=== PATIENT | female | born 1945 | race Caucasian/White ===

== ENCOUNTER → 2017-10-08 | Day surgery (SDC) | payer MEDICARE ==
[~2017-10-08] VITALS: Ht 154.9 cm; Wt 80.9 kg
[~2017-10-08] MED LIST: ASPI1TAB57 PO; ASPI81TA21 PO; CHLORHEXIDINE GLUCONATE 2 % 1 PACK (2 CLOTHS) TOPICAL PRN; CIPR500T4 PO; COZA100T PO; CYTO200T PO; DICY1TAB26 PO; FAMOTIDINE 20 MG/2 ML VIAL ONE; GLUC1000 PO; LACTATED RINGER'S 1000 ML IV PRN; LOSA100T2 PO; LOSA25TA31 PO; METOCLOPRAMIDE HCL 10 MG/2 ML VIAL ONE; METOPROLOL TARTRATE 25 MG TAB PO PRN; MIDAZOLAM HCL 2 MG/2 ML VIAL ONE; OMEP40CA2 PO; POVIDONE IODINE 5% (ANTISEPSIS KIT) 4 APPLICATIONS EACH NARE PRN; SIMV40 PO; SIMV40TA PO; SODIUM CHLORID 0.9% 500 ML IV PRN; TRAM50TA PO; VASOPRESSIN 20 UNITS/ML VIAL ONE; ZEGE20CA PO; ZOCO40TA PO
--- NOTE | 2017-10-08 10:53 | RADRPT ---
EXAM DATE/TIME: 10/08/2017 10:38 [place] COMPARISON: No previous studies available for comparison. INDICATIONS : Evaluate for pneumonia, pneumothorax or communicable disease. Pre op polypectomy. MEDICAL HISTORY : Hypertension. Diabetes mellitus type II. SURGICAL HISTORY : None. ENCOUNTER: Initial ACUITY: 1 day PAIN SCORE: 0/10 LOCATION: Bilateral chest FINDINGS: A single view of the chest demonstrates the lungs to be symmetrically aerated without evidence of mas s, infiltrate or effusion. The cardiomediastinal contours are unremarkable. Osseous structures are intact. CONCLUSION: No acute intrathoracic disease. Ashu Rivas MD on October 08, 2017 at 10:50 Board Certified Radiologist. This report was verified electronically.
[2017-10-08 11:09] LABS: HEMATOCRIT 38.9 % (35.0-46.0); HEMOGLOBIN 12.9 GM/DL (11.6-15.3); MEAN CELL VOLUME 86.1 FL (80.0-100.0); MEAN CORPUSCULAR HEMOGLOBIN 28.7 PG (27.0-34.0); MEAN CORPUSCULAR HGB CONC 33.3 % (32.0-36.0); MEAN PLATELET VOLUME 7.4 FL (7.0-11.0); PLATELET COUNT 472 TH/MM3 (150-450); RED BLOOD COUNT 4.52 MIL/MM3 (4.00-5.30); RED CELL DISTRIBUTION WIDTH 13.3 % (11.6-17.2); WHITE BLOOD COUNT 9.3 TH/MM3 (4.0-11.0)
[2017-10-08 13:05] VITALS: PULSE 100
--- NOTE | 2017-10-08 13:21 | PD.OP ---
Operative Report Date of Surgery: Oct 08, 2017 Preoperative Diagnosis: (1) Endometrial polyp (2) PMB (postmenopausal bleeding) Postoperative Diagnosis: (1) Endometrial polyp (2) PMB (postmenopausal bleeding) Procedure: Hysteroscopy with polypectomy Anesthesia: Ron FRANCO Surgeon: Beckie Espinosa Cras(s): Bebo Spears Resident Surgeon: n/a Operation and Findings: Indications: [Patient has had repeated bouts of postmenopausal bleeding. Transvaginal ultrasound shows a 1 cm lesion in the uterine fundus and thin endometrium-] Findings: Patient was found on hysteroscopic view to have [a very small polyp near the left tubal ostia.-Uterus sounds to 6 cm.] Fluid deficit under 300 cc. Procedure: Patient was brought to the OR and laid supine on the table. After inducing general anesthesia she was positioned in low stirrups in dorso- lithotomy position. An open-sided speculum was placed in the vagina after Betadine prep and time out. The anterior lip of the cervix was grasped with a single tooth tenaculum, and the cervix was dilated to accept a standard rigid hysteroscope. After viewing and taking pictures, the polyp was extracted with a MyoSureLite device. The endometrium was the thoroughly sampled and included in the specimen. Small amount of tissue returned. The procedure being complete, the instruments were removed, the patient was replaced supine and she was awakened. She was transferred to the PACU breathing on her own in stable condition. Sponge, needle, and instrument counts were correct. Beckie Espinosa MD Oct 08, 2017 13:21
[2017-10-08 13:45] VITALS: PULSE 78; TEMP 97.8
[2017-10-08 14:35] VITALS: BP 109/71; PULSE 88; RESP 14; O2SAT 97
--- NOTE | 2017-10-08 16:35 | EKG ---
Date Performed: 10/08/2017 Time Performed: 11:23:34 PTAGE: 72 years EKG: Sinus rhythm NORMAL ECG NO PREVIOUS TRACING DOCTOR: Vic Miguel Interpretating Date/Time 10/08/2017 16:33:05
== END | disposition home or self-care (01) ==
LOC: PHSDC 09:49
PROVIDERS: ATTEND Obstetrics & Gynecology
DX: N84.0 Polyp of corpus uteri (principal); N95.0 Postmenopausal bleeding; E11.9 Type 2 diabetes mellitus without complications; Z79.84 Long term (current) use of oral hypoglycemic drugs
CPT/HCPCS: 00952; 58558; 71045; 82948; 85027; 88305; 93005; J2250; J2765; J3010; J7120

== ENCOUNTER 2018-05-13 10:25 | Inpatient (IN) ==
[2018-05-13] MEDS ORDERED: Sod Chloride 0.9% Inj 1,000 ML IV.SIG ONE (11:34)
[2018-05-13 11:50] LABS: Baso # (Auto) 0.1 th/mm3 (0.0-0.2); Baso % (Auto) 0.8 % (0.0-2.0); Eos % (Auto) 0.4 % (0.0-4.0); Hematocrit 39.4 % (35.0-46.0); Hemoglobin 13.4 gm/dL (11.6-15.3); Lymph # (Auto) 1.7 th/mm3 (1.0-4.8); Lymph % (Auto) 18.3 % (9.0-44.0); Mean Corpuscular Volume 85.4 fL (80.0-100.0); Mono # (Auto) 0.7 th/mm3 (0.0-0.9); Mono % (Auto) 8.2 % (0.0-8.0); Neut # (Auto) 6.6 th/mm3 (1.8-7.7); Neut % (Auto) 72.3 % (16.0-70.0); Platelet Count 596 th/mm3 (150-450); Red Blood Count 4.61 mil/mm3 (4.00-5.30); Red Cell Distribution Width 12.8 % (11.6-17.2); White Blood Count 9.1 th/mm3 (4.0-11.0)
--- NOTE | 2018-05-13 12:24 | ED ---
HPI General Chief Complaint: Dizziness Stated Complaint: Dizzy/nausea/lost of balance x last night Time Seen by Provider: 05/13/18 11:05 History of Present Illness HPI Narrative: This is a 73-year-old female with history of chronic back pain, diabetes mellitus, hypertension, previous vertigo several years ago, presents today with complaints of dizziness last night. Patient states she got up to use the bathroom at roughly 3 PM. She states that she became extremely dizzy. She does report that she was just recently started on a new medication called tramadol. She states that she had taken a tramadol at 9 AM and the symptoms were present at 3 PM yesterday. She does report that she had associated nausea and vomiting with the dizziness episode. She denies any dizziness with out changing positions. She denies any symptoms at the time of my examination. She has she remarks that her back pain is much more improved. There is no dysuria, urgency, frequency there are no other complaints. Related Data Home Medications Medication Instructions Recorded Confirmed Bifidobacterium infantis [Align] 4 mg PO DAILY 05/13/18 05/13/18 ascorbic acid (vitamin C) [Vitamin 500 mg PO DAILY 05/13/18 05/13/18 C] cranberry [id number] coag 1 tab PO DAILY 05/13/18 05/13/18 cyanocobalamin (vitamin B-12) 1,000 mcg PO DAILY 05/13/18 05/13/18 [Vitamin B-12] ergocalciferol (vitamin D2) 50,000 unit PO QWEEK 05/13/18 05/13/18 [Vitamin D2] losartan-hydrochlorothiazide 1 tab PO DAILY 05/13/18 05/13/18 metformin 1,000 mg PO BID 05/13/18 05/13/18 omeprazole 40 mg PO DAILY 05/13/18 05/13/18 simvastatin 40 mg PO QPM 05/13/18 05/13/18 vit B6-mag cit,oxid-potass cit 1 tab PO BID 05/13/18 05/13/18 [Theralith XR] Allergies Allergy/AdvReac Type Severity Reaction Status Date / Time cephalexin Allergy Unknown Skin Verified 05/13/18 10:55 Discoloration Review of Systems ROS: all other systems reviewed are negative Constitutional Denies chills and Denies fever(s) Eyes Denies blurry vision, Denies diplopia and Denies photophobia ENT Reports vertigo, Reports nasal congestion, Reports post nasal drip, Denies sinus pressure and Denies sore throat Cardiovascular Denies chest pain and Denies diaphoresis Respiratory Denies chest congestion, Denies cough and Denies dyspnea Gastrointestinal Denies abdominal pain, Denies diarrhea, Reports nausea and Reports vomiting Genitourinary Denies urinary frequency and Denies dysuria Musculoskeletal Reports back pain (Chronic, not new) and Reports neck pain (Chronic, not new) Neurologic Reports vertigo, Reports dizziness (Orthostatic), Denies headache(s), Denies focal weakness and Denies paresthesias [facility] Medical History Medical History Diabetes (Acute) History of hysterectomy (Acute) Hypertension (Acute) Surgical History Surgical History History of cystoscopy (Acute) Social History Social History Substance History: No History of Abuse Smoking Status: Former smoker How Often Do You Have a Drink Containing Alcohol: Never Recent Travel in [facility] within the Last 8 Weeks: No Immunization History Tetanus Immunization: Unsure Exam Narrative Exam Narrative: GENERAL: Well-developed well-nourished female in no acute respiratory distress. SKIN: Focused skin assessment warm/dry. HEAD: Atraumatic. Normocephalic. EYES: Extraocular muscles were intact. No nystagmus. No scleral icterus. No injection or drainage. ENT: Mucous membranes pink and moist. NECK: Trachea midline. No JVD. Supple. No obvious carotid bruit. CARDIOVASCULAR: Regular rate and rhythm. No murmur appreciated. RESPIRATORY: No accessory muscle use. Clear to auscultation. Breath sounds equal bilaterally. GASTROINTESTINAL: Abdomen soft, non-tender, nondistended. Hepatic and splenic margins not palpable. MUSCULOSKELETAL: No obvious deformities. No clubbing. No cyanosis. No edema. NEUROLOGICAL: Awake and alert. No obvious cranial nerve deficits. Motor grossly within normal limits. Normal speech. Course Initial Documented Vital Signs Temperature 98.8 F 05/13/18 10:50 Pulse Rate 91 H 05/13/18 10:50 Respiratory Rate 16 05/13/18 10:50 Blood Pressure 154/83 H 05/13/18 10:50 Pulse Oximetry 97 05/13/18 10:50 Last Documented Vital Signs Temperature 98.8 F 05/13/18 10:50 Pulse Rate 90 05/13/18 12:45 Respiratory Rate 16 05/13/18 10:50 Blood Pressure 154/83 H 05/13/18 10:50 Pulse Oximetry 97 05/13/18 10:50 Medical Decision Making MDM Narrative Medical decision making narrative: 73-year-old female presents with dizziness. The patient states that yesterday when she got up to use the restroom, she became extremely dizzy. On further discussion and questioning, patient states that she just not feeling "right". CBC showed a normal H&H. Platelet count was in the 590s. Patient's sodium also comes back at 118. She been started on IV fluids here in the emergency department. [facility] Medical Screen Exam Complete: Yes Emergency Medical Condition: Yes Differential Diagnosis Differential Diagnosis: BPV versus dehydration versus posterior circulation CVA versus metabolic derangement Lab Data Result diagrams: 05/13/18 11:40 05/13/18 11:40 Lab Results 05/13/18 05/13/18 Range/Units 11:40 11:40 CBC w Diff Auto diff final WBC 9.1 (4.0-11.0) th/mm3 RBC 4.61 (4.00-5.30) mil/mm3 Hgb 13.4 (11.6-15.3) gm/dL Hct 39.4 (35.0-46.0) % MCV 85.4 (80.0-100.0) fL MCH 29.0 (27.0-34.0) pg MCHC 34.0 (32.0-36.0) % RDW 12.8 (11.6-17.2) % Plt Count 596 H (150-450) th/mm3 MPV 7.0 (7.0-11.0) fL Neut % (Auto) 72.3 H (16.0-70.0) % Lymph % (Auto) 18.3 (9.0-44.0) % [place] % (Auto) 8.2 H (0.0-8.0) % Eos % (Auto) 0.4 (0.0-4.0) % Baso % (Auto) 0.8 (0.0-2.0) % Neut # (Auto) 6.6 (1.8-7.7) th/mm3 Lymph # (Auto) 1.7 (1.0-4.8) th/mm3 [place] # (Auto) 0.7 (0.0-0.9) th/mm3 Eos # (Auto) 0.0 (0.0-0.4) th/mm3 Baso # (Auto) 0.1 (0.0-0.2) th/mm3 WBC Differential . Differential Comment . Sodium 118 L* (136-145) meq/L Potassium 3.4 L (3.5-5.1) meq/L Chloride 79 L (98-107) meq/L Carbon Dioxide 26.2 (21.0-32.0) meq/L Anion Gap 13 (5-15) meq/L BUN 13 (7-18) mg/dL Creatinine 0.90 (0.50-1.00) mg/dL Estimated GFR 61 L (>89) mL/min Random Glucose 122 H (74-106) mg/dL Calcium 9.2 (8.5-10.1) mg/dL Imaging Data Radiologist's impression: Head CT 05/13/18 11:34 CONCLUSION: 1. Negative for an acute process . Discharge Plan Discharge Disposition Patient Disposition: 30 Still Patient Discharge Details Diagnosis: Hyponatremia, Thrombocytosis, Diabetes mellitus, Hypertension Physicians Team ED Provider: Alejandro May Primary Care Provider: Ada Angel Rxs /Orders / Referrals /Forms Prescriptions: No Action cyanocobalamin (vitamin B-12) [Vitamin B-12] 1,000 mcg Tablet 1,000 mcg PO DAILY RF: 0 omeprazole 40 mg Capsule,Delayed Release(Dr/Ec) 40 mg PO DAILY RF: 0 simvastatin 40 mg Tablet 40 mg PO QPM RF: 0 losartan-hydrochlorothiazide 100-25 mg Tablet 1 tab PO DAILY RF: 0 ascorbic acid (vitamin C) [Vitamin C] 500 mg Tablet 500 mg PO DAILY RF: 0 metformin 1,000 mg Tablet 1,000 mg PO BID RF: 0 ergocalciferol (vitamin D2) [Vitamin D2] 50,000 unit Capsule 50,000 unit PO QWEEK RF: 0 Bifidobacterium infantis [Align] 4 mg Capsule 4 mg PO DAILY RF: 0 vit B6-mag cit,oxid-potass cit [Theralith XR] 3.75-45-45-49.5 mg Tablet Extended Release 1 tab PO BID RF: 0 cranberry [id number] coag 450-30-50 [id number] Tablet 1 tab PO DAILY RF: 0 Status ED Status: With Doctor
--- NOTE | 2018-05-13 12:29 | CT ---
EXAM DATE: 05/13/2018 12:21 PM EDT AGE/SEX: 73 years / Female INDICATIONS: Dizziness, nausea and loss of balance. CLINICAL DATA: This is the patient's initial encounter. Patient reports that signs and symptoms have been present for 1 day and indicates a pain score of 0/10. MEDICAL/SURGICAL HISTORY: Diabetes. Hypertension. Hysterectomy. RADIATION DOSE: 52.31 CTDI (mGy) COMPARISON: No prior exams available for comparison. TECHNIQUE: CT of the head without contrast. Using automated exposure control and adjustment of the mA and/or kV according to patient size, radiation dose was kept as low as reasonably achievable to ob tain optimal diagnostic quality images. DICOM format image data is available electronically for revi ew and comparison. FINDINGS: Cerebrum: The ventricles are normal for age. No evidence of midline shift, mass lesion, hemorrhage or acute infarction. No extraaxial fluid collections are seen. Posterior Fossa: The cerebellum and brainstem are intact. The 4th ventricle is midline. The cerebe llopontine angle is unremarkable. Extracranial: The visualized portion of the orbits is intact. Skull: The calvaria is intact. No evidence of skull fracture. CONCLUSION: 1. Negative for an acute process . Electronically signed by: Bebo Cortés MD 05/13/2018 12:28 PM EDT
[2018-05-13 12:42] LABS: Calcium 9.2 mg/dL (8.5-10.1); Carbon Dioxide 26.2 meq/L (21.0-32.0); Potassium 3.4 meq/L (3.5-5.1)
[2018-05-13] MEDS ORDERED: Sod Chloride 0.9% Inj 1,000 ML IV.CONT SCH (13:30)
[2018-05-13] MEDS ORDERED: Dextrose 50% in Water 50 ML Vial IV.PUSH PRN (13:31)
[2018-05-13] MEDS ORDERED: Bisacodyl 10 MG Supp RECTAL PRN (13:34)
[2018-05-13] MEDS ORDERED: Acetaminophen 325 MG Tablet PO PRN (13:34)
[2018-05-13 14:25] LABS: Magnesium 1.7 mg/dL (1.5-2.5)
[2018-05-13] MEDS: Heparin - SQ 10,000 UNITS/ML Vial SQ SCH (14:29)
--- NOTE | 2018-05-13 14:32 | XR ---
EXAM DATE: 05/13/2018 2:28 PM EDT AGE/SEX: 73 years / Female INDICATIONS: Shortness of breath, dizziness, and nausea. CLINICAL DATA: This is the patient's initial encounter. Patient reports that signs and symptoms have been present for 1 day and indicates a pain score of 3/10. MEDICAL/SURGICAL HISTORY: Diabetes mellitus type II. Hypertension. Hypercholesterolemia. Gustavo tigo. Low sodium. None. COMPARISON: [facility], CHEST SINGLE AP, 10/08/2017. . FINDINGS: A single AP view of the chest demonstrates the lungs to be symmetrically aerated without evidence of mass, infiltrate or effusion. The cardiomediastinal contours are unremarkable. Osseous structures a re intact. Atherosclerotic changes are again noted in the aorta. CONCLUSION: No acute cardiopulmonary disease. Electronically signed by: Alex Leonardo MD 05/13/2018 2:31 PM EDT
[2018-05-13 15:34] LABS: Calcium 8.5 mg/dL (8.5-10.1); Potassium 3.4 meq/L (3.5-5.1)
--- NOTE | 2018-05-13 16:36 | P.HP ---
History of Present Illness Primary Care Physician: Ada Angel MD Chief Complaint: Dizziness History of Present Illness: This is a 73-year-old female with a history of hypertension, diabetes mellitus, GERD, hyperlipidemia and back pain. Patient states she recently received steroid shot for her back pain but continued to have discomfort and was prescribed tramadol which she took yesterday morning and 6 hours later developed nausea and several episodes of vomiting. Early this morning she complained of dizziness and was bouncing off the wall. Denies fall. In the emergency department, her sodium was severely low at 118 and received 1 L NS fluid bolus and started on NS at 100 cc an hour as she appeared dehydrated. Patient also reported that she had diarrhea about 3 episodes 2 days ago. She also complained of weakness and "little" headache". She also takes losartan/ hydrochlorothiazide. Patient seen in the ICU she has no new complaints repeat sodium of 121. All other systems reviewed negative Inpatient Certification: I certify that the inpatient services were ordered in accordance with Medicare regulations governing the order. This includes certification that hospital inpatient services are reasonable and necessary and in the case of services not specified as inpatient-only under 42 CFR 419.22(n), that they are appropriately provided as inpatient services in accordance to with the 2-midnight benchmark under 43 CFR 412.3(e) Estimated Total Length of Stay (Days): 2 Plans for Post Hospital Care: Not yet determined Review of Systems All other systems reviewed negative except as stated in HPI PMFSH - History History Provided By: Patient - Medical History Medical History: Medical History (Last Reviewed 05/13/18 @ 16:30 by Kyle Stephen MD) Diabetes History of hysterectomy Hypertension - Surgical History Surgical History: Surgical History (Last Reviewed 05/13/18 @ 16:30 by Kyle Stephen MD) History of cystoscopy - Family History Family History: Family History (Last Updated 05/13/18 @ 16:30 by Kyle Stephen MD) Other Family history of diabetes mellitus - Social History I have reviewed the patient's Social History: Yes - Tobacco History Second Hand Smoke Exposure: No Smoking Status: Former smoker - Alcohol History How Often Do You Have a Drink Containing Alcohol: Never - Substance Use History Substance History: No History of Abuse - Travel History Recent Travel in the [facility] Within the Last 8 Weeks: No - Immunization History Tetanus Immunization: Unsure Hx Influenza Vaccine This Season: No Medications and Allergies Active Medications: Active Medications Acetaminophen (Tylenol) 650 mg PO Q4H PRN PRN Reason: Temp > 100.4 Al Hydroxide/Mg Hydroxide (Milk Of Magnesia Liq) 30 ml PO Q12H PRN PRN Reason: Mild Constipation Ascorbic Acid (Vitamin C) 500 mg PO DAILY [facility] Bisacodyl (Dulcolax Supp) 10 mg RECTAL DAILY PRN PRN Reason: SEVERE CONSITIPATION Cyanocobalamin (Vitamin B12) 1,000 mcg PO DAILY [facility] Dextrose (D50w Vial) 50 ml IV.PUSH UNSCH PRN PRN Reason: PER HYPOGLYCEMIA PROTOCOL Glucagon (Glucagon Inj) 1 mg OTHER PRN PRN PRN Reason: for Hypoglycemia Protocol Heparin Sodium (Porcine) (Heparin Inj) 5,000 units SQ Q12H [facility] Last Admin: 05/13/18 14:29 Dose: 5,000 units Sodium Chloride (Ns Inj) 1,000 mls @ 60 mls/hr IV.CONT .[id number] [facility] Stop: 05/14/18 06:09 Last Infusion: 05/13/18 15:14 Dose: 60 mls/hr Insulin Aspart (Novolog Insulin Correctional Sugar Inj) 0 unit SQ ACHS [facility]; Protocol Lactulose (Lactulose Liq) 30 ml PO DAILY PRN PRN Reason: SEVERE CONSITIPATION Metformin HCl (Glucophage) 1,000 mg PO BID@0900,1800 [facility] Metoclopramide HCl (Reglan Inj) 5 mg IV.PUSH Q6HR PRN; Protocol PRN Reason: NAUSEA OR VOMITING Ondansetron HCl (Zofran Inj) 4 mg IV.PUSH Q6H PRN PRN Reason: NAUSEA OR VOMITING Pravastatin Sodium (Pravachol) 40 mg PO DAILY [facility] Pravastatin Sodium (Pravachol) 80 mg PO QPM [facility] Senna/Docusate Sodium ([place]-Colace) 1 tab PO BID [facility] Sennosides (Senokot) 17.2 mg PO Q12H PRN PRN Reason: Moderate Constipation Sodium Chloride (Ns Flush) 2 ml IV.FLUSH PRN PRN PRN Reason: FLUSH AFTER USING IV ACCESS Allergies Allergy/AdvReac Type Severity Reaction Status Date / Time cephalexin Allergy Unknown Skin Verified 05/13/18 10:55 Discoloration Home Medications Medication Instructions Recorded Confirmed Type Bifidobacterium infantis [Align] 4 mg PO DAILY 05/13/18 05/13/18 History ascorbic acid (vitamin C) [Vitamin 500 mg PO DAILY 05/13/18 05/13/18 History C] cranberry [id number]-G-vyqsqtgj coag 1 tab PO DAILY 05/13/18 05/13/18 History cyanocobalamin (vitamin B-12) 1,000 mcg PO DAILY 05/13/18 05/13/18 History [Vitamin B-12] ergocalciferol (vitamin D2) 50,000 unit PO QWEEK 05/13/18 05/13/18 History [Vitamin D2] losartan-hydrochlorothiazide 1 tab PO DAILY 05/13/18 05/13/18 History metformin 1,000 mg PO BID 05/13/18 05/13/18 History omeprazole 40 mg PO DAILY 05/13/18 05/13/18 History simvastatin 40 mg PO QPM 05/13/18 05/13/18 History vit B6-mag cit,oxid-potass cit 1 tab PO BID 05/13/18 05/13/18 History [Theralith XR] Exam Vital signs: Vital Signs 05/13/18 10:50 05/13/18 12:45 05/13/18 13:35 Temperature 98.8 F Pulse Rate 91 H 90 93 H Respiratory Rate 16 16 Blood Pressure 154/83 H 134/63 Pulse Oximetry 97 97 05/13/18 14:28 05/13/18 15:33 Temperature 97.9 F Pulse Rate 90 88 Respiratory Rate 16 20 Blood Pressure 139/70 140/65 Pulse Oximetry 98 99 Intake & Output 05/12/18 05/13/18 05/13/18 18:59 06:59 18:59 Intake Total 1100 / 1100 Balance 1100 / 1100 Weight 78.3 kg Intake: IV 1100 / 1100 NS Inj 1,000 ML @ 60 mls/hr IV. 100 / 100 CONT .[id number] ROMINA Rx#: [id number] NS Inj 1,000 ML @ Wide Open IV. 1000 / 1000 SIG BOLUS ONE Rx#:[id number] Other: Weight On Admission 77.7 kg Narrative: GENERAL: Well-developed, well-nourished in no distress SKIN: Warm and dry. HEAD: Atraumatic. Normocephalic. EYES: Pupils equal and round. No scleral icterus. No injection or drainage. ENT: No nasal bleeding or discharge. Dry oral mucosa NECK: Trachea midline. No JVD. CARDIOVASCULAR: Regular rate and rhythm. RESPIRATORY: No accessory muscle use. Clear to auscultation. Breath sounds equal bilaterally. GASTROINTESTINAL: Abdomen soft, non-tender, nondistended. MUSCULOSKELETAL: Extremities without clubbing, cyanosis, or edema. No obvious deformities. NEUROLOGICAL: Awake and alert. No obvious cranial nerve deficits. Motor grossly within normal limits. Five out of 5 muscle strength in the arms and legs. Normal speech. PSYCHIATRIC: Appropriate mood and affect; insight and judgment normal. Results - Labs CBC & Chem 7: 05/13/18 11:40 05/13/18 14:55 Labs: Laboratory Results - last 24 hr 05/13/18 05/13/18 05/13/18 11:40 11:40 13:52 CBC w Diff Auto diff final WBC 9.1 RBC 4.61 Hgb 13.4 Hct 39.4 MCV 85.4 MCH 29.0 MCHC 34.0 RDW 12.8 Plt Count 596 H MPV 7.0 Neut % (Auto) 72.3 H Lymph % (Auto) 18.3 [place] % (Auto) 8.2 H Eos % (Auto) 0.4 Baso % (Auto) 0.8 Neut # (Auto) 6.6 Lymph # (Auto) 1.7 [place] # (Auto) 0.7 Eos # (Auto) 0.0 Baso # (Auto) 0.1 WBC Differential . Differential Comment . Sodium 118 L* Potassium 3.4 L Chloride 79 L Carbon Dioxide 26.2 Anion Gap 13 BUN 13 Creatinine 0.90 Estimated GFR 61 L Random Glucose 122 H Calcium 9.2 Magnesium 1.7 05/13/18 14:55 CBC w Diff WBC RBC Hgb Hct MCV MCH MCHC RDW Plt Count MPV Neut % (Auto) Lymph % (Auto) [place] % (Auto) Eos % (Auto) Baso % (Auto) Neut # (Auto) Lymph # (Auto) [place] # (Auto) Eos # (Auto) Baso # (Auto) WBC Differential Differential Comment Sodium 121 L* Potassium 3.4 L Chloride 84 L Carbon Dioxide 26.0 Anion Gap 11 BUN 11 Creatinine 0.82 Estimated GFR 68 L Random Glucose 134 H Calcium 8.5 Magnesium - Imaging Impressions Chest X-Ray 05/13/18 00:00 CONCLUSION: No acute cardiopulmonary disease. Head CT 05/13/18 11:34 CONCLUSION: 1. Negative for an acute process . Caprini VTE Risk Assessment Caprini VTE Risk Assessment: Moderate/High Risk (score >= 2) Caprini Risk Assessment Model: Point Value = 1 Point Value = 2 Point Value = 3 Point Value = 5 Age 41-60 Minor surgery BMI > 25 kg/m2 Swollen legs Varicose veins or History of unexplained or recurrent spontaneous Oral contraceptives or hormone replacement Sepsis (< 1 month) Serious lung disease, including pneumonia (< 1 month) Abnormal pulmonary function Acute myocardial infarction Congestive heart failure (< 1 month) History of inflammatory bowel disease Medical patient at bed rest Age 61-74 Arthroscopic surgery Major open surgery (> 45 min) Laparoscopic surgery (> 45 min) Malignancy Confined to bed (> 72 hours) Immobilizing plaster cast Central venous access Age >= 75 History of VTE Family history of VTE Factor V Leiden Prothrombin [id number] Lupus anticoagulant Anticardiolipin antibodies Elevated serum homocysteine Heparin-induced thrombocytopenia Other congenital or acquired thrombophilia Stroke (< 1 month) Elective arthroplasty Hip, pelvis, or leg fracture Acute spinal cord injury (< 1 month) Prophylaxis Regimen: Total Risk Factor Score Risk Level Prophylaxis Regimen 0-1 Low Early ambulation 2 Moderate Order ONE of the following: *Sequential Compression Device (SCD) *Heparin 5000 units SQ BID 3-4 Higher Order ONE of the following medications: *Heparin 5000 units SQ TID *Enoxaparin/Lovenox 40 mg SQ daily (WT < 150 kg, CrCl > 30 mL/min) *Enoxaparin/Lovenox 30 mg SQ daily (WT < 150 kg, CrCl > 10-29 mL/min) *Enoxaparin/Lovenox 30 mg SQ BID (WT < 150 kg, CrCl > 30 mL/min) AND/OR *Sequential Compression Device (SCD) 5 or more Highest Order ONE of the following medications: *Heparin 5000 units SQ TID (Preferred with Epidurals) *Enoxaparin/Lovenox 40 mg SQ daily (WT < 150 kg, CrCl > 30 mL/min) *Enoxaparin/Lovenox 30 mg SQ daily (WT < 150 kg, CrCl > 10-29 mL/min) *Enoxaparin/Lovenox 30 mg SQ BID (WT < 150 kg, CrCl > 30 mL/min) AND *Sequential Compression Device (SCD) Assessment and Plan - Plan This is a 73-year-old female with a history of hypertension, diabetes mellitus, GERD, hyperlipidemia and back pain. She presents with dizziness with a history of nausea, vomiting and diarrhea. Sodium 118. Head CT unremarkable. Chest x- ray independently reviewed by me with no acute cardiopulmonary disease. Severe hyponatremia likely secondary to recent GI loss and thiazide. Obtain serum and urine OSM, urine sodium. Discontinue thiazide we will continue NS infusion until sodium of 125. Serial monitoring of BMP. Seizure precautions. Fall precautions. PT eval. Hypokalemia secondary to vomiting. Will replace with 40 mEq p.o. potassium x1. Check magnesium level. Nausea and vomiting from tramadol. Antiemetic as needed. Patient educated DVT prophylaxis with SCD and subcu heparin Discharge Planning: Patient will be admitted in the ICU for close monitoring. She has severe hyponatremia at risk for encephalopathy and seizures.
--- NOTE | 2018-05-13 16:37 | P.DCO ---
- Diagnosis (1) Hyponatremia Status: Acute - Physical Therapy Order: Evaluate and treat, Improve ambulation, Strength and gait training - Home Health Nursing Order: Medical education, Medication education-adverse effect, Nursing assessment with vital signs - Case Management Consult Yes - Certification I have seen patient Karina Wood on 05/13/18. My clinical findings support the need for the requested home health care services because: Deconditioned with increased weakness I certify that my clinical findings support that this patient is homebound because: Unsteady gait/balance
[2018-05-13] MEDS: Insulin NovoLOG Aspart Correctional Sugar Inj SQ SCH ×2 (18:29→21:17)
[2018-05-13] MEDS ORDERED: VIT B6 MAG CIT OXID POTASS CIT PO SCH (21:00)
[2018-05-13] MEDS ORDERED: Senna/Docusate Sodium 8.6/50 MG Tablet PO SCH (21:00)
[2018-05-13 21:35] LABS: Calcium 8.6 mg/dL (8.5-10.1); Carbon Dioxide 26.5 meq/L (21.0-32.0); Potassium 4.2 meq/L (3.5-5.1)
[2018-05-14] MEDS: Heparin - SQ 10,000 UNITS/ML Vial SQ SCH ×2 (01:44→15:02)
[2018-05-14] MEDS ORDERED: Chlorhexidine Gluconate 2% 1 Pack (2 Cloths) TOPICAL PRN (04:00)
[2018-05-14] MEDS: Chlorhexidine Gluconate 2% 1 Pack (2 Cloths) TOPICAL SCH (04:03)
[2018-05-14 06:42] LABS: Baso # (Auto) 0.1 th/mm3 (0.0-0.2); Eos # (Auto) 0.1 th/mm3 (0.0-0.4); Eos % (Auto) 1.2 % (0.0-4.0); Hematocrit 32.8 % (35.0-46.0); Hemoglobin 11.5 gm/dL (11.6-15.3); Lymph # (Auto) 2.6 th/mm3 (1.0-4.8); Lymph % (Auto) 38.1 % (9.0-44.0); Mean Corpuscular HGB Conc 35.1 % (32.0-36.0); Mean Corpuscular Hemoglobin 30.4 pg (27.0-34.0); Mean Corpuscular Volume 86.5 fL (80.0-100.0); Mean Platelet Volume 7.3 fL (7.0-11.0); Mono # (Auto) 0.7 th/mm3 (0.0-0.9); Mono % (Auto) 10.3 % (0.0-8.0); Neut # (Auto) 3.3 th/mm3 (1.8-7.7); Neut % (Auto) 49.4 % (16.0-70.0); Platelet Count 508 th/mm3 (150-450); Red Cell Distribution Width 12.9 % (11.6-17.2); White Blood Count 6.8 th/mm3 (4.0-11.0)
[2018-05-14] MEDS: Ascorbic Acid 500 MG Tablet PO SCH (08:45)
[2018-05-14] MEDS: Insulin NovoLOG Aspart Correctional Sugar Inj SQ SCH ×4 (08:45→20:08)
[2018-05-14] MEDS ORDERED: CRANBERRY C BACILLUS COAG PO SCH (09:00)
[2018-05-14 10:17] LABS: Potassium 4.1 meq/L (3.5-5.1)
[2018-05-14 10:20] LABS: Calcium 8.6 mg/dL (8.5-10.1); Carbon Dioxide 27.2 meq/L (21.0-32.0); Magnesium 1.7 mg/dL (1.5-2.5)
--- NOTE | 2018-05-14 11:49 | P.PN ---
Subjective Interval history: Follow-up hyponatremia. Sodium up to 129. Patient has no complaints and wants to go home. Physical Exam Vital signs: Vital Signs 05/13/18 12:45 05/13/18 13:35 05/13/18 14:28 Temperature Pulse Rate 90 93 H 90 Respiratory Rate 16 16 Blood Pressure 134/63 139/70 Pulse Oximetry 97 98 05/13/18 15:16 05/13/18 15:33 05/13/18 16:00 Temperature 97.9 F Pulse Rate 86 88 92 H Respiratory Rate 4 L 20 45 H Blood Pressure 140/65 140/65 153/76 H Pulse Oximetry 99 05/13/18 20:00 05/13/18 22:28 05/13/18 23:28 Temperature 97.7 F Pulse Rate 82 82 74 Respiratory Rate 22 18 Blood Pressure 137/68 114/61 Pulse Oximetry 97 97 97 05/14/18 00:28 05/14/18 01:00 05/14/18 02:00 Temperature Pulse Rate 76 75 76 Respiratory Rate 18 20 18 Blood Pressure 102/58 L 134/72 104/72 Pulse Oximetry 97 97 97 05/14/18 03:00 05/14/18 04:00 05/14/18 04:56 Temperature Pulse Rate 72 72 75 Respiratory Rate 14 30 H Blood Pressure 117/66 99/56 L 99/56 L Pulse Oximetry 97 97 97 05/14/18 06:00 Temperature Pulse Rate 72 Respiratory Rate 22 Blood Pressure 114/58 L Pulse Oximetry 97 Intake & Output 05/13/18 05/14/18 05/14/18 18:59 06:59 18:59 Intake Total 1340 / 1340 240 / 240 400 / 400 Output Total 200 / 200 1401 / 1401 Balance 1140 / 1140 -1161 / -1161 400 / 400 Weight 78.3 kg 77.9 kg Intake: IV 1100 / 1100 400 / 400 NS Inj 1,000 ML @ 60 mls/hr IV. 100 / 100 400 / 400 CONT .[id number] ROMINA Rx#: [id number] NS Inj 1,000 ML @ Wide Open IV. 1000 / 1000 SIG BOLUS ONE Rx#:[id number] Oral 240 / 240 240 / 240 Output: Urine 200 / 200 1400 / 1400 Stool Other: Date of Last Bowel Movement 05/13/18 05/14/18 # Bowel Movements 2 Weight On Admission 77.7 kg Narrative: GENERAL: Well-developed, well-nourished in no distress SKIN: Warm and dry. CARDIOVASCULAR: Regular rate and rhythm. RESPIRATORY: No accessory muscle use. Clear to auscultation. Breath sounds equal bilaterally. GASTROINTESTINAL: Abdomen soft, non-tender, nondistended. MUSCULOSKELETAL: Extremities without clubbing, cyanosis, or edema. No obvious deformities. NEUROLOGICAL: Awake and alert. No obvious cranial nerve deficits. Motor grossly within normal limits. Five out of 5 muscle strength in the arms and legs. Normal speech. PSYCHIATRIC: Appropriate mood and affect; insight and judgment normal. Results - Labs CBC & Chem 7: 05/14/18 04:40 05/14/18 04:40 Laboratory Results - last 24 hr 05/13/18 05/13/18 05/13/18 11:40 11:40 13:50 CBC w Diff Auto diff final WBC 9.1 RBC 4.61 Hgb 13.4 Hct 39.4 MCV 85.4 MCH 29.0 MCHC 34.0 RDW 12.8 Plt Count 596 H MPV 7.0 Neut % (Auto) 72.3 H Lymph % (Auto) 18.3 Brule % (Auto) 8.2 H Eos % (Auto) 0.4 Baso % (Auto) 0.8 Neut # (Auto) 6.6 Lymph # (Auto) 1.7 Brule # (Auto) 0.7 Eos # (Auto) 0.0 Baso # (Auto) 0.1 WBC Differential . Differential Comment . Sodium 118 L* Potassium 3.4 L Chloride 79 L Carbon Dioxide 26.2 Anion Gap 13 BUN 13 Creatinine 0.90 Estimated GFR 61 L POC Glucose Random Glucose 122 H Osmolality Calcium 9.2 Magnesium Urine Osmolality 376 Ur Random Sodium Nasal Screen MRSA (PCR) 05/13/18 05/13/18 05/13/18 13:50 13:52 14:55 CBC w Diff WBC RBC Hgb Hct MCV MCH MCHC RDW Plt Count MPV Neut % (Auto) Lymph % (Auto) Brule % (Auto) Eos % (Auto) Baso % (Auto) Neut # (Auto) Lymph # (Auto) Brule # (Auto) Eos # (Auto) Baso # (Auto) WBC Differential Differential Comment Sodium 121 L* Potassium 3.4 L Chloride 84 L Carbon Dioxide 26.0 Anion Gap 11 BUN 11 Creatinine 0.82 Estimated GFR 68 L POC Glucose Random Glucose 134 H Osmolality 259 L Calcium 8.5 Magnesium 1.7 Urine Osmolality Ur Random Sodium 38 Nasal Screen MRSA (PCR) 05/13/18 05/13/18 05/13/18 16:46 18:05 20:44 CBC w Diff WBC RBC Hgb Hct MCV MCH MCHC RDW Plt Count MPV Neut % (Auto) Lymph % (Auto) Brule % (Auto) Eos % (Auto) Baso % (Auto) Neut # (Auto) Lymph # (Auto) Brule # (Auto) Eos # (Auto) Baso # (Auto) WBC Differential Differential Comment Sodium 126 L Potassium 4.2 D Chloride 90 L Carbon Dioxide 26.5 Anion Gap 10 BUN 11 Creatinine 0.85 Estimated GFR 66 L POC Glucose 135 H Random Glucose 137 H Osmolality Calcium 8.6 Magnesium Urine Osmolality Ur Random Sodium Nasal Screen MRSA (PCR) Not detected 05/13/18 05/14/18 05/14/18 20:53 04:40 04:40 CBC w Diff Auto diff final WBC 6.8 RBC 3.80 L Hgb 11.5 L Hct 32.8 L MCV 86.5 MCH 30.4 MCHC 35.1 RDW 12.9 Plt Count 508 H MPV 7.3 Neut % (Auto) 49.4 Lymph % (Auto) 38.1 Brule % (Auto) 10.3 H Eos % (Auto) 1.2 Baso % (Auto) 1.0 Neut # (Auto) 3.3 Lymph # (Auto) 2.6 Brule # (Auto) 0.7 Eos # (Auto) 0.1 Baso # (Auto) 0.1 WBC Differential . Differential Comment . Sodium 129 L Potassium 4.1 Chloride 92 L Carbon Dioxide 27.2 Anion Gap 10 BUN 10 Creatinine 0.73 Estimated GFR 78 L POC Glucose 133 H Random Glucose 117 H Osmolality Calcium 8.6 Magnesium 1.7 Urine Osmolality Ur Random Sodium Nasal Screen MRSA (PCR) 05/14/18 08:00 CBC w Diff WBC RBC Hgb Hct MCV MCH MCHC RDW Plt Count MPV Neut % (Auto) Lymph % (Auto) Brule % (Auto) Eos % (Auto) Baso % (Auto) Neut # (Auto) Lymph # (Auto) Brule # (Auto) Eos # (Auto) Baso # (Auto) WBC Differential Differential Comment Sodium Potassium Chloride Carbon Dioxide Anion Gap BUN Creatinine Estimated GFR POC Glucose 121 H Random Glucose Osmolality Calcium Magnesium Urine Osmolality Ur Random Sodium Nasal Screen MRSA (PCR) - Imaging Impressions Chest X-Ray 05/13/18 00:00 CONCLUSION: No acute cardiopulmonary disease. Head CT 05/13/18 11:34 CONCLUSION: 1. Negative for an acute process . - Procedures none Assessment and Plan - Assessment (1) Hyponatremia Code(s): E87.1 - Hypo-osmolality and hyponatremia Status: Acute - Plan This is a 73-year-old female with a history of hypertension, diabetes mellitus, GERD, hyperlipidemia and back pain. She presents with dizziness with a history of nausea, vomiting and diarrhea. Sodium 118. Head CT unremarkable. Chest x- ray independently reviewed by me with no acute cardiopulmonary disease. Severe hyponatremia likely secondary to recent GI loss and thiazide. Improving sodium up to 129 (was 118 2 days ago). Discontinued hydrochlorothiazide and NS infusion Seizure precautions. Fall precautions. PT recommended home health care Hypokalemia secondary to vomiting. Improved Nausea and vomiting from tramadol. Antiemetic as needed. Patient educated DVT prophylaxis with SCD and subcu heparin Discharge Planning: Discharge patient to home if repeat sodium over 130 Condition on discharge: Improved Regular Diet as tolerated Ad Rosita activity Rx written: Losartan Follow-up with primary care physician
[2018-05-14 15:13] LABS: Calcium 8.9 mg/dL (8.5-10.1)
[2018-05-14] MEDS ORDERED: Sod Chloride 0.9% Inj 1,000 ML IV.CONT SCH (15:45)
[2018-05-14 22:04] LABS: Calcium 8.5 mg/dL (8.5-10.1); Carbon Dioxide 24.5 meq/L (21.0-32.0)
[2018-05-15] MEDS: Heparin - SQ 10,000 UNITS/ML Vial SQ SCH (02:04)
[2018-05-15] MEDS: Chlorhexidine Gluconate 2% 1 Pack (2 Cloths) TOPICAL SCH (03:15)
[2018-05-15 07:16] LABS: Calcium 8.7 mg/dL (8.5-10.1); Carbon Dioxide 26.1 meq/L (21.0-32.0); Magnesium 1.6 mg/dL (1.5-2.5)
[2018-05-15] MEDS: Insulin NovoLOG Aspart Correctional Sugar Inj SQ SCH (07:21)
[2018-05-15] MEDS: Ascorbic Acid 500 MG Tablet PO SCH (08:24)
--- NOTE | 2018-05-15 13:29 | P.DS ---
Date of admission: 05/13/18 13:26 Primary care physician: Ada Angel MD Brief History from admission: This is a 73-year-old female with a history of hypertension, diabetes mellitus, GERD, hyperlipidemia and back pain. Patient states she recently received steroid shot for her back pain but continued to have discomfort and was prescribed tramadol which she took yesterday morning and 6 hours later developed nausea and several episodes of vomiting. Early this morning she complained of dizziness and was bouncing off the wall. Denies fall. In the emergency department, her sodium was severely low at 118 and received 1 L NS fluid bolus and started on NS at 100 cc an hour as she appeared dehydrated. Patient also reported that she had diarrhea about 3 episodes 2 days ago. She also complained of weakness and "little" headache". She also takes losartan/ hydrochlorothiazide. Patient seen in the ICU she has no new complaints repeat sodium of 121. All other systems reviewed negative DS: Diagnosis - Discharge Diagnosis (1) Hyponatremia Status: Acute DS: Medications - Discharge Medications Prescriptions: losartan 100 mg PO DAILY #30 tab DS: Summary Hospital Course: This is a 73-year-old female with a history of hypertension, diabetes mellitus, GERD, hyperlipidemia and back pain. She presents with dizziness with a history of nausea, vomiting and diarrhea. Sodium 118. Head CT unremarkable. Chest x- ray independently reviewed by me with no acute cardiopulmonary disease. Severe hyponatremia likely secondary to recent GI loss and thiazide. Improving sodium up to 134. Discontinued hydrochlorothiazide and NS infusion Seizure precautions. Fall precautions. PT recommended home health care Hypokalemia secondary to vomiting. Improved Nausea and vomiting from tramadol. Resolved. Antiemetic as needed. Patient educated DVT prophylaxis with SCD and subcu heparin - Time Spent with Patient Total time spent providing and/or coordinating discharge services: Greater than 30 minutes - Quality: VTE Deep Vein Thrombosis/Pulmonary Embolism Present on Admission: No Exam Vital signs: Vital Signs 05/14/18 14:07 05/14/18 15:00 05/14/18 16:00 Temperature Pulse Rate 94 H 82 88 Respiratory Rate 24 25 H 23 Blood Pressure 128/64 116/62 136/67 Pulse Oximetry 96 05/14/18 17:00 05/14/18 20:00 05/15/18 00:00 Temperature 96.9 F L 96.3 F L Pulse Rate 86 90 83 Respiratory Rate 19 20 20 Blood Pressure 135/73 117/64 113/58 L Pulse Oximetry 97 97 Intake & Output 05/14/18 05/15/18 05/15/18 18:59 06:59 18:59 Intake Total 400 / 400 1090 / 1090 Balance 400 / 400 1090 / 1090 Weight 77.6 kg Intake: IV 400 / 400 850 / 850 NS Inj 1,000 ML @ 80 mls/hr IV. 400 / 400 850 / 850 CONT .[id number] ROMINA Rx#: [id number] Oral 240 / 240 Other: # Voids 4 Date of Last Bowel Movement 05/13/18 05/13/18 Narrative: GENERAL: Well-developed, well-nourished in no distress SKIN: Warm and dry. CARDIOVASCULAR: Regular rate and rhythm. RESPIRATORY: No accessory muscle use. Clear to auscultation. Breath sounds equal bilaterally. GASTROINTESTINAL: Abdomen soft, non-tender, nondistended. MUSCULOSKELETAL: Extremities without clubbing, cyanosis, or edema. No obvious deformities. NEUROLOGICAL: Awake and alert. No obvious cranial nerve deficits. Motor grossly within normal limits. Five out of 5 muscle strength in the arms and legs. Normal speech. PSYCHIATRIC: Appropriate mood and affect; insight and judgment normal. Results Procedures completed during hospitalization: none Labs on day of discharge: Labs from last 24 hours 05/15/18 05/14/18 05/14/18 05:22 21:45 19:59 Sodium 134 L 133 L Potassium 4.0 4.0 Chloride 98 97 L Carbon Dioxide 26.1 24.5 Anion Gap 10 12 BUN 13 15 Creatinine 0.68 0.84 Estimated GFR 85 L 66 L POC Glucose 129 H Random Glucose 112 H 128 H Calcium 8.7 8.5 Magnesium 1.6 05/14/18 05/14/18 17:01 13:36 Sodium 128 L Potassium 4.0 Chloride 91 L Carbon Dioxide 25.0 Anion Gap 12 BUN 11 Creatinine 0.80 Estimated GFR 70 L POC Glucose 124 H Random Glucose 136 H Calcium 8.9 Magnesium - Impressions ITS Impressions Chest X-Ray 05/13/18 00:00 CONCLUSION: No acute cardiopulmonary disease. Head CT 05/13/18 11:34 CONCLUSION: 1. Negative for an acute process . Discharge Plan - Discharge Disposition Patient Disposition: /Home Health Service - Discharge Condition Condition: Stable - Discharge Order Discharge Orders: Discharge Order (Routine); Ordered 05/14/18 Ordered By: Kyle Stephen - Discharge Details Discharge Comment: if repeat Na > 130 - Physicians Team Primary Care Provider: Ada Angel Attending Provider: Kyle Stephen
== END 2018-05-15 09:00 | disposition home health service (06) ==
LOC: PHED 10:25 → PHEDA 13:26 → PHICU 15:06 → PH3 05-14 17:59
PROVIDERS: ADMIT Internal Medicine; ATTEND Internal Medicine